=== PATIENT | female | born 1975 | race Caucasian/White ===

== ENCOUNTER 2019-03-06 08:20 | Emergency (ER) | payer MEDICAID ==
[~2019-03-06] VITALS: Ht 160 cm; Wt 65.5 kg
[2019-03-06 08:30] VITALS: Ht 160 cm; Wt 65.5 kg
[2019-03-06] MEDS ORDERED: SOD CHLORIDE 0.9% 1,000 ML IV STA (10:14)
[2019-03-06] MEDS ORDERED: MTF1000T PO (11:40)
[2019-03-06 11:50] VITALS: BP 119/62; PULSE 72; RESP 18
--- NOTE | 2019-03-06 12:23 | ERD ---
ER Documentation Chief Complaint Chief Complaint glucose 265 in intake no other complaints, 3 months HPI 44-year-old female presenting with elevated glucose. Patient was being seen at her clinic at [facility]. Patient has diabetes now is taking metformin 1000 mg. She was told to stop taking glipizide and simvastatin to the her . Patient is about 3 months . NKDA. Surgical history C- section. Social history denies ROS All systems reviewed and are negative except as per history of present illness. Medications Home Meds Active Scripts Metformin* (Glucophage*) 1,000 Mg Tablet, 1000 MG PO BID, #20 TAB Prov:SAMANTHA GUEVARA PA-C 03/06/19 Allergies Allergies: Coded Allergies: No Known Drug Allergy (Verified Allergy, Unknown, 12/18/08) PMhx/Soc Hx Psychiatric Problems: No Hx Miscellaneous Medical Probl: No Hx Alcohol Use: No Hx Substance Use: No Hx Tobacco Use: No FmHx Family History: No diabetes, No coronary disease, No other Physical Exam Vitals Vital Signs Date Temp Pulse Resp B/P (MAP) Pulse Ox O2 O2 Flow FiO2 Time Delivery Rate 03/06/19 98.2 72 18 119/62 100 Room Air 11:50 (81) 03/06/19 97.0 86 18 116/64 99 08:30 (81) Physical Exam GENERAL: The patient is well-appearing, well-nourished, in no acute distress HEENT: Atraumatic. Conjunctivae are pink. Pupils equal, round, and reactive to light. There is no scleral icterus. Tympanic membranes clear bilaterally. Oropharynx clear. CHEST: Clear to auscultation bilaterally. There are no rales, wheezes or rhonchi. HEART: Regular rate and rhythm. No murmurs, clicks, rubs or gallops. ABDOMEN:Soft, nontender and nondistended. Good bowel sounds. No rebound or guarding. No gross peritonitis. No gross organomegaly or masses. No Moran sign or McBurney point tenderness. Result Diagram: 03/06/19 0910 03/06/19 0910 Results 24 hrs Laboratory Tests Test 03/06/19 08:29 03/06/19 09:10 03/06/19 10:25 03/06/19 11:38 Bedside Glucose 265 mg/dL 216 mg/dL 170 mg/dL White Blood Count 7.0 10^3/ul Red Blood Count 4.58 10^6/ul Hemoglobin 12.9 g/dl Hematocrit 39.2 % Mean Corpuscular 85.6 fl Volume Mean Corpuscular 28.2 pg Hemoglobin Mean Corpuscular 32.9 g/dl Hemoglobin Concent Red Cell 13.4 % Distribution Width Platelet Count 221 10^3/UL Mean Platelet 11.8 fl Volume Immature 0.400 % Granulocytes % Neutrophils % 66.3 % Lymphocytes % 25.3 % Monocytes % 5.6 % Eosinophils % 1.7 % Basophils % 0.7 % Nucleated Red 0.0 /100WBC Blood Cells % Immature 0.030 10^3/ul Granulocytes # Neutrophils # 4.6 10^3/ul Lymphocytes # 1.8 10^3/ul Monocytes # 0.4 10^3/ul Eosinophils # 0.1 10^3/ul Basophils # 0.1 10^3/ul Nucleated Red 0.0 10^3/ul Blood Cells # Urine Color YELLOW Urine Clarity SLIGHTLY CLOUDY Urine pH 6.0 Urine Specific 1.030 [place] Urine Ketones 1+ mg/dL Urine Nitrite NEGATIVE mg/dL Urine Bilirubin NEGATIVE mg/dL Urine Urobilinogen NEGATIVE mg/dL Urine Leukocyte 1+ Haley/ul Esterase Urine Microscopic 6 /HPF RBC Urine Microscopic 61 /HPF WBC Urine Squamous FEW /HPF Epithelial Cells Urine Hemoglobin NEGATIVE mg/dL Urine Glucose 3+ mg/dL Urine Total NEGATIVE mg/dl Protein Sodium Level 136 mmol/L Potassium Level 4.2 mmol/L Chloride Level 102 mmol/L Carbon Dioxide 22 mmol/L Level Anion Gap 12 Blood Urea 12 mg/dl Nitrogen Creatinine 0.31 mg/dl Est Glomerular > 60 mL/min Filtrat Rate mL/min Glucose Level 270 mg/dl Calcium Level 9.2 mg/dl Total Bilirubin 0.5 mg/dl Direct Bilirubin 0.00 mg/dl Indirect Bilirubin 0.5 mg/dl Aspartate Amino 18 IU/L Transf (AST/SGOT) Alanine 14 IU/L Aminotransferase ( ALT/SGPT) Alkaline 66 IU/L Phosphatase Total Protein 6.9 g/dl Albumin 3.9 g/dl Globulin 3.00 g/dl Albumin/Globulin 1.30 Ratio Current Medications Medications Dose Sig/Dino Start Time Status Last (Trade) Ordered Route PRN Stop Time Admin Dose Reason Admin Sodium 1,000 ml @ Q1H STAT 03/06/19 DC 03/06/19 Chloride 1,000 mls/hr IV 10:14 10:28 03/06/19 11:13 Procedures/MDM ER course: 1 L normal saline given in ED. Glucose reduced to 170. This case was discussed with Dr. Maloney prior to discharge. Given patient has controlled glucose in the ER with no signs of DKA patient can follow-up with her primary and [facility] for further management. MDM: 44-year-old female presenting with hyperglycemia. Patient's electrolytes appear to be within normal limits and I have low suspicion for DKA or other complications associated with hyperglycemia. Patient is recommended to continue taking her metformin as previously prescribed and to follow-up with [facility] as she needs to have management for hyperglycemia. Patient is told symptoms change or worsen to return immediately to the ER. All questions answered at discharge Departure Diagnosis: Primary Impression: Hyperglycemia Condition: Stable Patient Instructions: Hyperglycemia (High Blood Sugar) Referrals: EL NICOLETTE JAUREGUI (PCP) Additional Instructions: FOLLOW UP WITH YOUR PRIMARY CARE PHYSICIAN TOMORROW.Return to this facility if you are not improving as expected. SAMANTHA GUEVARA PA-C Mar 06, 2019 12:23
== END 2019-03-06 11:52 | disposition home or self-care (01) ==
LOC: FTE 08:20
DX: O99.810 Abnormal glucose complicating pregnancy (principal); O24.119 Pre-existing type 2 diabetes mellitus, in pregnancy, unspecified trimester; Z3A.00 Weeks of gestation of pregnancy not specified; Z79.84 Long term (current) use of oral hypoglycemic drugs
CPT/HCPCS: 36415; 80053; 81001; 82962; 85025; 96360; J7030; Z7502